=== PATIENT | male | born 1985 | race Caucasian/White ===

== ENCOUNTER 2023-04-30 19:51 | Outpatient (REF) | payer MEDICAID, SELFPAY ==
[2023-05-01 12:09] LABS: Chlamydia Result Negative (Negative); GC Result Negative (Negative)
[2023-05-02 09:55] LABS: HIV-1/2 Ag & Ab Screen Negative (Negative)
[2023-05-03 11:18] LABS: Syphilis Serology (RPR) Negative (Negative)
[2023-05-03 15:21] LABS: Hepatitis C Ab w Rflx HCV PCR Negative (Negative)
== END 2023-04-30 19:52 | disposition home or self-care (01) ==
LOC: LBN 19:51
PROVIDERS: PCP Nurse Practitioner Family; Visit Provider Family Medicine
DX: Z11.3 Encounter for screening for infections with a predominantly sexual mode of transmission (principal); Z11.4 Encounter for screening for human immunodeficiency virus [HIV]; Z11.59 Encounter for screening for other viral diseases
CPT/HCPCS: 86803; 87389; 87491; 87591; 86592